=== PATIENT | male | born 1930 | race Caucasian/White ===

== ENCOUNTER 2017-11-30 11:06 | Inpatient (IN) ==
[2017-11-30 11:44] LABS: Basophils % 0.5 %; Eosinophils # 0.2 K/mcL (0.0-0.6); Eosinophils % 1.9 %; Hematocrit 46.6 % (37.5-50.1); Hemoglobin 16.1 g/dL (12.9-16.9); Immature Granulocytes % 0.5 % (0-4); Lymphocytes # 0.8 K/mcL (0.6-4.6); Lymphocytes % 9.7 %; Mean Corpuscular HGB Conc 34.5 g/dL (31.6-35.5); Mean Corpuscular Hemoglobin 31.4 pg (28.0-33.3); Mean Platelet Volume 9.3 fL (9.4-12.4); Monocytes % 11.3 %; Neutrophils # 6.5 K/mcL (1.6-8.9); Platelet Count 201 K/mcL (140-400); Red Blood Count 5.12 M/mcL (4.19-5.50); Red Cell Distribution Width 12.8 % (11.5-14.5); Segmented Neutrophils % 76.1 %
[2017-11-30 11:50] LABS: INR 3.2; Prothrombin Time 35.3 Seconds (9.4-12.1)
[2017-11-30 11:53] LABS: Activated Partial Thrombo Time 38.5 Seconds (26.0-36.0)
--- NOTE | 2017-11-30 12:01 | Emergency Department Note ---
Disposition Clinical Impression: Chest pain, rule out acute myocardial infarction Disposition: Admitted As Inpatient Condition: Fair Time of Disposition: 12:08 General Adult HPI - General Stated complaint: CP Time Seen by Provider: 11/30/17 11:10 Source: patient Mode of arrival: ambulatory Limitations: no limitations Nursing Notes Reviewed: Yes Vital Signs Reviewed: Yes - History of Present Illness HPI Narrative: 87-year-old male presents emergency Department with concerns of acute onset chest pain. Patient states symptoms started while he was dressing this morning. He states that this is occurred a couple times over the past week. He reports associated shortness of breath nausea and lightheadedness. Patient did not syncopized. Patient has a history of multiple cardiac stents which she obtained after similar symptoms in the past. Patient has not had a stress test and multiple years. He follows Dr. Hein for cardiology. Chest pain is described as a pressure in the center of his chest that did not radiate. It resolved with nitroglycerin. Not present in the emergency department. Pain Scale: 0 - Related Data Home Medications Medication Instructions Recorded Confirmed Aspirin 11/23/17 FluocinoNIDE 0.05% CRM 11/23/17 Furosemide 11/23/17 Isosorbide MONOnitrate 11/23/17 Levothyroxine Sodium 11/23/17 Metoprolol 11/23/17 Nitrostat 11/23/17 Omeprazole 11/23/17 Potassium Chlorate 11/23/17 Pravastatin Sodium 11/23/17 Previous Rx's Medication Instructions Recorded Acetaminophen with Codeine 1 each PO Q4-6H PRN 3 Days #10 11/23/17 [Acetaminophen-Cod #3 Tablet] tablet Methocarbamol [Robaxin] 250 - 500 mg PO Q8HR PRN #15 tablet 11/23/17 Allergies Allergy/AdvReac Type Severity Reaction Status Date / Time No Known Allergies Allergy Unverified 11/23/17 18:39 All systems ED: reviewed and negative except as stated. Review of Systems: As Per HPI Past Medical History - Past Medical History Attestation: Yes The following information was validated with the patient. Source: patient Medical history: Reports: atrial fibrillation, hypertension, thyroid disease, other Psychiatric history: Reports: no psych history - Social History Smoking Status: Never smoker Smokeless Tobacco Status: No Alcohol use: Reports: rarely Drug use: Reports: none Physical Exam General: Alert and in no acute distress Skin: Warm, dry, intact Head: Normocephalic and atraumatic Neck: Supple, trachea midline and no tenderness Cardiovascular: RRR, normal perfusion Respiratory: CTAB, no wheezing, cough, or respiratory distress Musculoskeletal: Normal strength, no tenderness or deformity GI: Soft, nontender, nondistended. Bowel sounds present Neuro: A&O to person, place, time and situation. No focal deficits noted on exam Psychiatric: cooperative and appropriate mood and affect. 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 Patient's BP was 90/60, his heart rate was in the 60s. She stated that he was very diaphoretic. Patient comfortable with the plan for admission to the hospital for further care and evaluation. Patient given aspirin in the emergency department. - Medical Records Medical records reviewed: Yes I reviewed the patient's medical records. - Lab Data Lab results reviewed: Yes I reviewed the patient's lab results. Result diagrams: 11/30/17 11:30 Lab Results 11/30/17 11/30/17 Range/Units 11:30 11:30 WBC 8.6 (4.3-11.1) K/mcL RBC 5.12 (4.19-5.50) M/mcL Hgb 16.1 (12.9-16.9) g/dL Hct 46.6 (37.5-50.1) % MCV 91.0 (83.0-100.0) fL MCH 31.4 (28.0-33.3) pg MCHC 34.5 (31.6-35.5) g/dL RDW 12.8 (11.5-14.5) % Plt Count 201 (140-400) K/mcL MPV 9.3 L (9.4-12.4) fL Immature Gran % 0.5 (0-4) % Seg Neutrophils % 76.1 % Lymphocytes % 9.7 % Monocytes % 11.3 % Eosinophils % 1.9 % Basophils % 0.5 % Neutrophils # 6.5 (1.6-8.9) K/mcL Lymphocytes # 0.8 (0.6-4.6) K/mcL Monocytes # 1.0 (0.0-1.3) K/mcL Eosinophils # 0.2 (0.0-0.6) K/mcL Basophils # 0.0 (0.0-0.2) K/mcL PT 35.3 H (9.4-12.1) Seconds INR 3.2 APTT 38.5 H (26.0-36.0) Seconds - Radiology Data Radiology results reviewed: Yes I reviewed the patient's radiology results. - EKG Data EKG #1 EKG attestation: Yes I reviewed and interpreted this EKG. EKG results narrative: V paced with multiple PVCs. Initial EKG had multiple PVCs in a row occluding the [place] beats seen on leads I, II, III.
[2017-11-30 12:06] LABS: Troponin I < 0.03 ng/mL (< 0.04)
[2017-11-30 12:08] LABS: BUN/Creatinine Ratio 16 (6-26); Blood Urea Nitrogen 14 mg/dL (8-23); Calcium 9.3 mg/dL (8.6-10.3); Carbon Dioxide 28 mEq/L (23-29); Chloride 106 mEq/L (98-107); Glucose 127 mg/dL (70-105); Osmolality,Calculated 292 (280-300); Potassium 4.2 mEq/L (3.5-5.1); Sodium 140 mEq/L (136-145); eGFR For African Americans > 60 (> 60); eGFR For Non-African Americans > 60 (> 60)
[2017-11-30] MEDS ORDERED: Aspirin 81 MG TAB.CHEW PO ONE (12:08)
--- NOTE | 2017-11-30 15:20 | Internal Med History&Physical ---
Date of Encounter: 12/01/17 Time of Encounter: 04:00 Internal Medicine - H&P: HPI Chief complaint: CP History of present illness: Mr. 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 and cardiac enzymes were was no significant abnormalities the patient was admitted for further evaluation and management Past Med Surg Social Fam HX - Past Medical History Medical history: atrial fibrillation, hypertension, thyroid disease, other Psychiatric history: no psych history - Social History Smoking Status: Never smoker Smokeless Tobacco Status: No Alcohol use: rarely Drug use: none - Family History Mother Living Status: Age at : 56 Cause of : liver cancer Father Living Status: Cause of : tb Hx Family Respiratory Disorders: Yes Internal Medicine - H&P: Meds Acetaminophen with Codeine [Acetaminophen-Cod #3 Tablet] 1 tab PO BID PRN [History] Aspirin Enteric Coated [Aspirin EC] 81 mg PO DAILY 11/30/17 [History] Furosemide [Lasix] 40 mg PO DAILY 11/30/17 [History] Levothyroxine Sodium 100 mcg PO DAILY 11/30/17 [History] Losartan Potassium [Cozaar] 50 mg PO DAILY 11/30/17 [History] Metoprolol Tartrate [Metoprolol Tartrate] 75 mg PO BID 11/30/17 [History] Omeprazole [PriLOSEC] 20 mg PO DAILY 11/30/17 [History] Potassium Chloride [K-Tab ER] 20 meq PO DAILY 11/30/17 [History] Pravastatin Sodium [Pravachol] 20 mg PO HS 11/30/17 [History] Warfarin Sodium [Warfarin Sodium] 4 mg PO DAILY 11/30/17 [History] 3 Allergy/AdvReac Type Severity Reaction Status Date / Time No Known Allergies Allergy Verified 11/30/17 15:38 All Systems PM: A 10-system review of systems was performed and is negative for pertinent findings except as documented above in the HPI. - Constitutional Constitutional: no chills, no fever(s), no night sweats - Cardiovascular Cardiovascular ROS IM: chest pain, dyspnea, no diaphoresis, no lightheadedness, no palpitations, no syncope - Respiratory Respiratory: dyspnea, no cough, no wheezing, no excessive phlegm production - Gastrointestinal Gastrointestinal: no abdominal pain, no diarrhea, no hematemesis, no hematochezia, no melena, no nausea, no vomiting - Neurological Neurological ROS: no confusion, no convulsions, no focal weakness, no numbness, no tingling, no tremor(s) - Constitutional Vitals: Temp Pulse Resp BP Pulse Ox 98.0 F 69 16 156/107 96 11/30/17 11:14 11/30/17 12:54 11/30/17 12:54 11/30/17 12:54 11/30/17 12:54 General appearance: Present: A&O X 3 - Head Head exam: Present: atraumatic, normocephalic - Respiratory Respiratory exam: Present: CTAB. Absent: accessory muscle use, rales, rhonchi, wheezes - Cardiovascular Cardiovascular exam: Present: RRR, +S1, +S2. Absent: diastolic murmur, gallop, rubs, systolic murmur - GI/Abdominal GI/Abdominal exam: Present: normal bowel sounds, soft, no peritoneal signs. Absent: distended, tenderness - Extremities Exam Extremities exam: Present: warm, radial pulses palpable and symmetrical. Absent : calf tenderness, cyanotic, pedal edema Internal Med - H&P Results - Labs CBC & Chem 7: 12/01/17 03:30 12/01/17 03:30 - Assessment and plan (1) Chest pain, rule out acute myocardial infarction Current Visit: Yes Status: Acute Assessment and plan: - Chest pain due to R/O ACS PLAN: - cardiac enzymes x 2 q 8 hr - EKG now and in AM - ASA - O2 by NC to keep SpO2 greater than 92% - UA - CBCD, BMP in AM - Fasting lipids - Home meds (check list) - Heparin 5000 U SQ BID - 2D Echo - Cardiology consult (2) Hypertension Current Visit: Yes Status: Acute Assessment and plan: the patient Pressure on the low side, will continue antihypertensive medication with holding parameters and continue to monitor. (3) Afib Current Visit: No Status: Acute Assessment and plan: The patient has a history of A. fib, EKG revealed V paced with multiple PVCs in a row occluding the [place] beats seen on leads I, II, III. cardiology was consulted for further evaluation and management (4) Hypothyroidism Current Visit: Yes Status: Acute Assessment and plan: we will continue home levothyroxine (5) DVT prophylaxis Current Visit: Yes Status: Acute Assessment and plan: we'll restart the patient on SCDs as well as subcutaneous heparin - Time Spent With Patient Total time spent is greater than 50% in coordination of care (as documented) at patient's floor/unit and/or counseling patient:
[2017-11-30] MEDS ORDERED: Naloxone 0.4 MG/ML INJ IVP PRN (21:51)
[2017-11-30] MEDS ORDERED: *HR* Acetaminophen w/Cod 300-30 mg 1 TAB TABLET PO PRN (22:49)
[2017-12-01 05:03] LABS: Basophils % 0.4 %; Eosinophils # 0.2 K/mcL (0.0-0.6); Eosinophils % 2.4 %; Hematocrit 43.8 % (37.5-50.1); Immature Granulocytes % 0.4 % (0-4); Lymphocytes # 1.5 K/mcL (0.6-4.6); Lymphocytes % 15.7 %; Mean Corpuscular HGB Conc 32.9 g/dL (31.6-35.5); Mean Corpuscular Hemoglobin 30.1 pg (28.0-33.3); Mean Corpuscular Volume 91.4 fL (83.0-100.0); Mean Platelet Volume 10.1 fL (9.4-12.4); Neutrophils # 6.5 K/mcL (1.6-8.9); Platelet Count 186 K/mcL (140-400); Red Blood Count 4.79 M/mcL (4.19-5.50); Red Cell Distribution Width 12.8 % (11.5-14.5); Segmented Neutrophils % 70.1 %
[2017-12-01 05:07] LABS: INR 3.3; Prothrombin Time 36.1 Seconds (9.4-12.1)
[2017-12-01 05:10] LABS: Activated Partial Thrombo Time 36.8 Seconds (26.0-36.0)
[2017-12-01 05:15] LABS: Hemoglobin 14.4 g/dL (12.9-16.9)
[2017-12-01 05:30] LABS: Troponin I < 0.03 ng/mL (< 0.04)
[2017-12-01 05:35] LABS: Alanine Aminotransferase 15 Units/L (7-52); Albumin 3.5 g/dL (3.5-5.7); Albumin/Globulin Ratio 1.6 (1.1-2.2); Alkaline Phosphatase 51 Units/L (34-104); Aspartate Amino Transferase 16 Units/L (13-39); BUN/Creatinine Ratio 29 (6-26); Bilirubin,Total 0.9 mg/dL (0.3-1.0); Blood Urea Nitrogen 21 mg/dL (8-23); Calcium 8.8 mg/dL (8.6-10.3); Carbon Dioxide 26 mEq/L (23-29); Chloride 106 mEq/L (98-107); Chol/HDL Ratio 2.4 (0-4.9); Cholesterol 93 mg/dL (< 200); Globulin 2.2 g/dL (2.4-3.5); Glucose 139 mg/dL (70-105); HDL Cholesterol 38 mg/dL (40-59); LDL Cholesterol,Calculated 39 mg/dL (0-99); Magnesium 2.1 mg/dL (1.6-2.6); Osmolality,Calculated 293 (280-300); Potassium 3.8 mEq/L (3.5-5.1); Sodium 139 mEq/L (136-145); Total Protein 5.7 g/dL (6.4-8.9); Triglycerides 79 mg/dL (< 150); eGFR For African Americans > 60 (> 60); eGFR For Non-African Americans > 60 (> 60)
[2017-12-01 06:06] LABS: Bilirubin,Urine Negative (Negative); Blood,Urine Negative (Negative); Clarity,Urine Clear (Clear); Color,Urine Yellow (Yellow); Glucose,Urine (UA) Normal (Normal); Ketones,Urine Negative (Negative); Leukocyte Esterase,Urine Negative (Negative); Nitrite,Urine Negative (Negative); PH,Urine 6.5 pH Units (5.0-8.0); Protein,Urine Negative (Neg-Trace); Specific Gravity,Urine 1.026 (1.010-1.025)
--- NOTE | 2017-12-01 07:17 | Electrocardiograph Report ---
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
--- NOTE | 2017-12-01 07:18 | Electrocardiograph Report ---
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
[2017-12-01] MEDS ORDERED: *HR* Acetaminophen w/Cod 300-30 mg 1 TAB TABLET PO SCH (09:00)
[2017-12-01] MEDS: Aspirin Enteric Coated 81 MG Tablet PO SCH (09:23)
[2017-12-01] MEDS: Furosemide 40 MG TABLET PO SCH (09:23)
--- NOTE | 2017-12-01 11:00 | Cardiology Consult Note ---
Addendum entered and electronically signed by Moise Schaffer CNP 12/01/17 14:32 : Device check completed- single chamber medtronic. Last device check was 01/2017. There was 2 runs NSVT only 1 second long. No concerning findings to account for dizziness. TTE pending. Keep NPO after midnight for possible cardiac testing. Original Note: Date of Encounter: 12/01/17 Time of Encounter: 10:58 Assessment and Plan (1) Chest pain, rule out acute myocardial infarction Current Visit: Yes Status: Chronic Intermittent chest pain relieved with NTG. H/o SD and PCI in 1999. Troponin negative x4. EKG with no acute changes, ventricular pacing and intermittent afib seen. Last TTE 08/2017 showed reduced EF at 35-40%. C Previously 40-45% in 2014, 50% in 2013, and 35% in 2008.) Stress test completed one year ago showed prior inferior/inferolateral infarct. Negative for ischemia. TTE pending. I will check his ICD. Last check was 01/2017. Currently pain free. Further recommendation to follow. (2) CAD (coronary artery disease) Current Visit: Yes Status: Acute H/o SD and PCI in 1999. Stress test 12/2016 was negative for ischemia. Continue asa, statin, and bb. \ Qualifiers: Coronary Disease-Associated Artery/Lesion type: [place] artery [place] vs. transplanted heart: [place] heart Associated angina: without angina Qualified Code(s): I25.10 - Atherosclerotic heart disease of [place] coronary artery without angina pectoris (3) Afib Current Visit: No Status: Chronic H/o chronic afib. Appears to be rate controlled. Will check ICD. Continue coumadin. Qualifiers: Atrial fibrillation type: chronic Qualified Code(s): I48.2 - Chronic atrial fibrillation (4) ICD (implantable cardioverter-defibrillator) in place Current Visit: No Status: Chronic H/o ICMP and ICD. (5) Cardiomyopathy Current Visit: Yes Status: Chronic H/o ischemic cardiomyopathy that resolved. Last TTE showed reduced EF at 35-40% with mild reduction in RV function, mild LVH. Currently euvolemic. Will change metoprolol tartrate to metoprolol succinate. Continue cozaar. Qualifiers: Cardiomyopathy type: ischemic Qualified Code(s): I25.5 - Ischemic cardiomyopathy Discussion w patient/family: The assessment and plan as outlined above was discussed with the patient and/or family members who expressed understanding and agreement. All questions were answered. Thank you for involving us in the care of your patient. Please call with any questions. History of Present Illness Consult date: 12/01/17 Requesting physician: Darya Jarrell Consult reason: chest pain Chief complaint: Chest discomfort and dizziness History of present illness: Mr. Schafer is a 87 year old male with past medical history significant for CAD s/p remote PCI, HTN, ICD, atrial fibrillation on coumadin, and hypothyroidism. He presents with the c/o intermittent left sided chest discomfort starting 2 days ago. The discomfort occurred while sitting. He associates his discomfort with dizziness and blurred vision. C/o dizziness while standing in his room today that quickly resolved. Previous cardiac testing: Stress test 12/2017- Large fixed defect seen in the inferior and inferiolateral byrd suggestive of prior infarct. Negative for ischemia. Gated EF 42%. TTE 09/06/17- EF 35-40%, mild LVH, normal RV structure with reduced function. TTE 02/21/15- EF 40-45%, RV hypokenesis. Last device check was 01/2017- no events, battery longevity 9.7 years. Past Med Surg Social Fam HX - Past Medical History Attestation: Yes The following information was validated with the patient. Medical history: atrial fibrillation, cardiomyopathy, coronary artery disease, hypertension, myocardial infarction, thyroid disease, other Psychiatric history: no psych history - Past Surgical History Surgical History: tonsilectomy - Social History Smoking Status: Never smoker Smokeless Tobacco Status: No Alcohol use: rarely Drug use: none - Family History Mother Living Status: Age at : 56 Cause of : liver cancer Father Living Status: Cause of : tb Hx Family Respiratory Disorders: Yes Medications and Allergies Acetaminophen with Codeine [Acetaminophen-Cod #3 Tablet] 1 tab PO BID PRN [History] Aspirin Enteric Coated [Aspirin EC] 81 mg PO DAILY 11/30/17 [History] Furosemide [Lasix] 40 mg PO DAILY 11/30/17 [History] Levothyroxine Sodium 100 mcg PO DAILY 11/30/17 [History] Losartan Potassium [Cozaar] 50 mg PO DAILY 11/30/17 [History] Metoprolol Tartrate [Metoprolol Tartrate] 75 mg PO BID 11/30/17 [History] Omeprazole [PriLOSEC] 20 mg PO DAILY 11/30/17 [History] Potassium Chloride [K-Tab ER] 20 meq PO DAILY 11/30/17 [History] Pravastatin Sodium [Pravachol] 20 mg PO HS 11/30/17 [History] Warfarin Sodium [Warfarin Sodium] 4 mg PO DAILY 11/30/17 [History] 3 Allergy/AdvReac Type Severity Reaction Status Date / Time No Known Allergies Allergy Verified 11/30/17 15:38 All Systems Review: The remainder of the systems were reviewed and are negative Physical Examination Vital Signs, Last 4 Hours Temp Pulse Resp BP BP BP BP 12/01/17 10:37 97.7 F 70 18 102/65 122/79 115/75 112/73 12/01/17 07:05 98.6 F 72 16 134/86 Pulse Ox 12/01/17 10:37 98 12/01/17 07:05 96 General: Conversant, No Apparent Distress HEENT: Atraumatic, Normocephaly, Mucus Membranes Moist Neck: No JVD, Normal carotid pulses Cardiac: Reg Rate and Rhythm, Normal S1 and S2, No Murmur Lungs: Normal Breath Sounds, No Wheeze, Rales, Rhonchi Neuro: Alert and responsive, No focal deficits noted Abdomen: Soft, Non-Tender Skin: No rashes noted on visualized skin Musculoskeletal: No Chest Wall Tenderness Extremities: No Clubbing, No Cyanosis, No Edema, Normal Pulses Results 12/01/17 03:30 12/01/17 03:30 Lab Results 11/30/17 12/01/17 12/01/17 22:09 03:30 03:30 WBC 9.3 Hgb 14.4 D Hct 43.8 Plt Count 186 INR 3.3 APTT 36.8 H Sodium Potassium Chloride Carbon Dioxide BUN Creatinine Glucose Calcium Magnesium Total Bilirubin AST ALT Alkaline Phosphatase Troponin I < 0.03 12/01/17 12/01/17 03:30 09:31 WBC Hgb Hct Plt Count INR APTT Sodium 139 Potassium 3.8 Chloride 106 Carbon Dioxide 26 BUN 21 Creatinine 0.72 Glucose 139 H Calcium 8.8 Magnesium 2.1 Total Bilirubin 0.9 AST 16 ALT 15 Alkaline Phosphatase 51 Troponin I < 0.03 < 0.03 - Imaging and Cardiology Echo: report reviewed - EKG Interpretation EKG results cardiology: personally reviewed Consult Discharge Plan - Plan Referrals: Mir Corona MD [Primary Care Provider] -
--- NOTE | 2017-12-01 13:18 | Internal Med Progress Note ---
Date of Encounter: 12/01/17 Time of Encounter: 13:18 - Assessment and plan (1) Chest pain, rule out acute myocardial infarction Current Visit: Yes Status: Chronic Assessment and plan: - Chest pain due to R/O ACS - HO AR PCI in 1999- Last TTE 08/2017 showed reduced EF at 35-40%. C Previously 40-45% in 2014, 50% in 2013, and 35% in 2008.) Stress test completed one year ago showed prior inferior/inferolateral infarct. Negative for ischemia cardiac enzymes negative cardiology consulted- nPO after midnight for further testing Echo pending ASA statin BB ARB Nitro as needed (2) Afib Current Visit: No Status: Chronic Assessment and plan: Hx of Afib EKG V paced with multiple PVC- cardilogy consulted- last device check was 01/2017 there wer 2 runs of NSVT 1 sec long at that time . NPO after midnight for further testing Rate controlled cont with coumadin Qualifiers: Atrial fibrillation type: chronic Qualified Code(s): I48.2 - Chronic atrial fibrillation (3) Hypertension Current Visit: Yes Status: Acute Assessment and plan: the patient Pressure on the low side, continue meds with parameters . Qualifiers: Hypertension type: essential hypertension Qualified Code(s): I10 - Essential (primary) hypertension (4) Hypothyroidism Current Visit: Yes Status: Chronic Assessment and plan: we will continue home levothyroxine Qualifiers: Hypothyroidism type: unspecified Qualified Code(s): E03.9 - Hypothyroidism , unspecified (5) DVT prophylaxis Current Visit: Yes Status: Acute Assessment and plan: we'll restart the patient on SCDs as well as subcutaneous heparin - Time Spent With Patient Total time spent is greater than 50% in coordination of care (as documented) at patient's floor/unit and/or counseling patient: - Subjective Interval history: This patient is new to me I did review medical records. I examined the patient at bedside. Presently denies any CP or SOB - Constitutional Vitals: Temp Pulse Resp BP Pulse Ox 97.7 F 70 18 122/79 98 12/01/17 10:37 12/01/17 10:37 12/01/17 10:37 12/01/17 10:37 12/01/17 10:37 General appearance: Present: A&O X 3 - Head Head exam: Present: atraumatic, normocephalic - Eye Eye exam: Present: PERRL, conjuntiva pink, sclera anicteric Pupils: Present: PERRL - Neck Neck exam general surgery: Present: supple, trachea midline. Absent: lymphadenopathy - Respiratory Respiratory exam: Present: CTAB. Absent: accessory muscle use, rales, rhonchi, wheezes - Cardiovascular Cardiovascular exam: Present: RRR, +S1, +S2. Absent: diastolic murmur, gallop, rubs, systolic murmur - GI/Abdominal GI/Abdominal exam: Present: normal bowel sounds, soft, no peritoneal signs. Absent: distended, tenderness - Extremities Exam Extremities exam: Present: warm, radial pulses palpable and symmetrical. Absent : calf tenderness, cyanotic, pedal edema - Neurological Exam Neurological exam: Present: CN II-XII intact, oriented X3, no focal deficits. Absent: pronater drift, facial droop, speech deficit - Skin Skin exam: Present: dry, intact Internal Medicine: Result - Labs CBC & Chem 7: 12/01/17 03:30 12/01/17 03:30 Labs: Short CBC 12/01/17 Range/Units 03:30 WBC 9.3 (4.3-11.1) K/mcL Hgb 14.4 D (12.9-16.9) g/dL Hct 43.8 (37.5-50.1) % Plt Count 186 (140-400) K/mcL Neutrophils # 6.5 (1.6-8.9) K/mcL BMP 12/01/17 03:30 Sodium 139 Potassium 3.8 Chloride 106 Carbon Dioxide 26 BUN 21 Creatinine 0.72 Glucose 139 H Calcium 8.8 Cardiac Enzymes 11/30/17 12/01/17 12/01/17 Range/Units 22:09 03:30 09:31 Troponin I < 0.03 < 0.03 < 0.03 (< 0.04) ng/mL Liver Function 12/01/17 Range/Units 03:30 Total Bilirubin 0.9 (0.3-1.0) mg/dL AST 16 (13-39) Units/L ALT 15 (7-52) Units/L Alkaline Phosphatase 51 (34-104) Units/L Albumin 3.5 (3.5-5.7) g/dL Urine 12/01/17 Range/Units 05:56 Urine Color Yellow (Yellow) Urine Clarity Clear (Clear) Urine pH 6.5 (5.0-8.0) pH Units Ur Specific [place] 1.026 H (1.010-1.025) Urine Protein Negative (Neg-Trace) mg/dL Urine Glucose (UA) Normal (Normal) mg/dL - ABG Interpretation ABG results: PT/INR, D-dimer PT 36.1 Seconds (9.4-12.1) H 12/01/17 03:30 Consult Discharge Plan - Plan Referrals: Mir Corona MD [Primary Care Provider] -
[2017-12-01] MEDS ORDERED: Warfarin perPT PO PRN (18:00)
--- NOTE | 2017-12-01 20:38 | Electrocardiograph Report ---
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
[2017-12-02 05:14] LABS: Basophils # 0.1 K/mcL (0.0-0.2); Basophils % 0.7 %; Eosinophils # 0.2 K/mcL (0.0-0.6); Eosinophils % 2.7 %; Hematocrit 42.3 % (37.5-50.1); Hemoglobin 14.6 g/dL (12.9-16.9); Immature Granulocytes % 0.2 % (0-4); Lymphocytes # 1.5 K/mcL (0.6-4.6); Lymphocytes % 18.2 %; Mean Corpuscular HGB Conc 34.5 g/dL (31.6-35.5); Mean Corpuscular Hemoglobin 31.3 pg (28.0-33.3); Mean Corpuscular Volume 90.6 fL (83.0-100.0); Mean Platelet Volume 9.8 fL (9.4-12.4); Monocytes % 12.7 %; Neutrophils # 5.4 K/mcL (1.6-8.9); Platelet Count 183 K/mcL (140-400); Red Blood Count 4.67 M/mcL (4.19-5.50); Red Cell Distribution Width 12.6 % (11.5-14.5); Segmented Neutrophils % 65.5 %
[2017-12-02 05:26] LABS: BUN/Creatinine Ratio 25 (6-26); Blood Urea Nitrogen 17 mg/dL (8-23); Calcium 8.7 mg/dL (8.6-10.3); Carbon Dioxide 26 mEq/L (23-29); Chloride 107 mEq/L (98-107); Glucose 111 mg/dL (70-105); INR 2.3; Osmolality,Calculated 288 (280-300); Potassium 3.8 mEq/L (3.5-5.1); Prothrombin Time 25.7 Seconds (9.4-12.1); Sodium 138 mEq/L (136-145); eGFR For African Americans > 60 (> 60); eGFR For Non-African Americans > 60 (> 60)
[2017-12-02] MEDS: Furosemide 40 MG TABLET PO SCH (08:20)
[2017-12-02] MEDS: Aspirin Enteric Coated 81 MG Tablet PO SCH (08:20)
[2017-12-02] MEDS ORDERED: Metoprolol XL (24 HR) Succ 50 MG TAB.ER.24H PO SCH (09:00)
[2017-12-02] MEDS ORDERED: Isosorbide MONOnitrate (24 HR) 60 MG TAB.ER.24H PO SCH (09:00)
[2017-12-02] MEDS ORDERED: amLODIPine 5 MG TABLET PO SCH (09:00)
--- NOTE | 2017-12-02 13:19 | Discharge Summary ---
- NOTES TO OUTPATIENT PROVIDER Notes to Outpatient Provider: Patient placed on Imdur per cardiology- follow up with cardiology. Decreased losartan to 25 mg dt Low BP will need to monitor Orders not resulted at time of discharge: Pending orders 12/03/17 04:00 INR/PT [Prothrombin Time INR] [COAG] AM 0400 Date of Encounter: 12/02/17 Time of Encounter: 13:14 - Discharge Diagnosis (1) Chest pain, rule out acute myocardial infarction Priority: Primary Status: Chronic (2) Afib Priority: Secondary Status: Chronic Qualifiers: Atrial fibrillation type: chronic Qualified Code(s): I48.2 - Chronic atrial fibrillation (3) Hypertension Priority: Secondary Status: Acute Qualifiers: Hypertension type: essential hypertension Qualified Code(s): I10 - Essential (primary) hypertension (4) Hypothyroidism Priority: Secondary Status: Chronic Qualifiers: Hypothyroidism type: unspecified Qualified Code(s): E03.9 - Hypothyroidism , unspecified Hospital course: Mr. Schafer is a 87 year old male PMH of prior OR and multiple cardiac stents, presented to the ED with intermitten episodes of CP with associated SOB nausea and lightheadedness alleviated with nitroglycerin. EKG revealed V paced multiple PVC cardiac enzymes were negative x3 He was admitted and seen by cardiology- who advised to add Imdur ambukate patient and if no CP have him follow up as outpatient. He did have a lower BP systolic in 100. I did decrease his losartan. Advised him to follow up PCP to monitor BP as well as to follow up with cardiology. He is presently CP free and hemodynamically stable. He verbalizes understanding of discharge instructions and is ready for discharge Discharge discussed with: patient - Time Spent with Patient Total time spent providing and/or coordinating discharge services: - Discharge Medications Prescriptions: Isosorbide MONOnitrate (24 HR) [Imdur] 60 mg PO DAILY #30 tab.er.24h Losartan Potassium [Cozaar] 25 mg PO DAILY #30 tablet Home Medications: Acetaminophen with Codeine [Acetaminophen-Cod #3 Tablet] 1 tab PO BID PRN [History] Aspirin Enteric Coated [Aspirin EC] 81 mg PO DAILY 11/30/17 [History] Furosemide [Lasix] 40 mg PO DAILY 11/30/17 [History] Levothyroxine Sodium 100 mcg PO DAILY 11/30/17 [History] Metoprolol Tartrate 75 mg PO BID 11/30/17 [History] Omeprazole [PriLOSEC] 20 mg PO DAILY 11/30/17 [History] Potassium Chloride [K-Tab ER] 20 meq PO DAILY 11/30/17 [History] Pravastatin Sodium [Pravachol] 20 mg PO HS 11/30/17 [History] Warfarin Sodium 4 mg PO DAILY 11/30/17 [History] Isosorbide MONOnitrate (24 HR) [Imdur] 60 mg PO DAILY #30 tab.er.24h 12/02/17 [ Rx] Losartan Potassium [Cozaar] 25 mg PO DAILY #30 tablet 12/02/17 [Rx] Allergies/Adverse Reactions: 3 Allergy/AdvReac Type Severity Reaction Status Date / Time No Known Allergies Allergy Verified 11/30/17 15:38 Date of admission: 11/30/17 21:51 Primary care physician: Mir Corona MD Discharging clinician: Pepper Paris Anticipated date of discharge: 12/02/17 - Constitutional Vitals: Temp Pulse Resp BP Pulse Ox 97.5 F L 76 16 95/61 97 12/02/17 11:23 12/02/17 11:23 12/02/17 11:23 12/02/17 11:23 12/02/17 11:23 General appearance: Present: A&O X 3 - Head Head exam: Present: atraumatic, normocephalic - Eye Eye exam: Present: PERRL, conjuntiva pink, sclera anicteric Pupils: Present: PERRL - Neck Neck exam general surgery: Present: supple, trachea midline. Absent: lymphadenopathy - Respiratory Respiratory exam: Present: CTAB. Absent: accessory muscle use, rales, rhonchi, wheezes - Cardiovascular Cardiovascular exam: Present: RRR, +S1, +S2. Absent: diastolic murmur, gallop, rubs, systolic murmur - GI/Abdominal GI/Abdominal exam: Present: normal bowel sounds, soft, no peritoneal signs. Absent: distended, tenderness - Extremities Exam Extremities exam: Present: warm, radial pulses palpable and symmetrical. Absent : calf tenderness, cyanotic, pedal edema - Neurological Exam Neurological exam: Present: CN II-XII intact, oriented X3, no focal deficits. Absent: pronater drift, facial droop, speech deficit - Skin Skin exam: Present: dry, intact - Patient Status Disposition: Home, Self-Care Condition: Fair Functional capacity at discharge: independent ambulation Overall status at discharge: patient is back to baseline - Discharge Instructions Instructions: Atrial Fibrillation (DC), Pacemaker (DC), Hypothyroidism (DC), Chronic Hypertension (DC) Follow Up With: Mir Corona MD [Primary Care Provider] - (Your appointment has been webrequested. our offices will calll you with an appointment time and date. If you do not hear from us please call [phone]) Benjy Card MD [Partnered Physician] - Forms: ED Satisfaction Letter - Diet and Activity Activity: increase activity as tolerated Diet: low fat, low cholesterol
[2017-12-02 13:32] VITALS: BP 105/62
--- NOTE | 2017-12-02 14:26 | Cardiology Progress Note ---
Date of Encounter: 12/02/17 Time of Encounter: 14:23 Assessment and Plan (1) Chest pain, rule out acute myocardial infarction Current Visit: Yes Status: Chronic Intermittent chest pain relieved with NTG on admit. H/o MA and PCI in 1999. Troponin negative x4. EKG with no acute changes, ventricular pacing and intermittent afib seen. Last TTE 08/2017 showed reduced EF at 35-40%. C Previously 40-45% in 2014, 50% in 2013, and 35% in 2008.) Stress test completed one year ago showed prior inferior/inferolateral infarct. Negative for ischemia. Re-peat TTE shows mildly to moderatley reduced EF. No significant change. Recommend next TTE with definity. Device check shows no concerning events to account for symptoms. Imdur added to medication and he is now pain free. Medical management recommended due to patient being on coumadin to avoid triple therapy and due to advanced age. Patient and agree. Cardiology will sign off. Out-pt f/u will be scheduled. (2) CAD (coronary artery disease) Current Visit: Yes Status: Acute H/o MA and PCI in 1999. Stress test 12/2016 was negative for ischemia. Continue asa, statin, and bb. \ Qualifiers: Coronary Disease-Associated Artery/Lesion type: [place] artery [place] vs. transplanted heart: [place] heart Associated angina: without angina Qualified Code(s): I25.10 - Atherosclerotic heart disease of [place] coronary artery without angina pectoris (3) Afib Current Visit: No Status: Chronic H/o chronic afib. Appears to be rate controlled. No events on ICD check. Continue coumadin. Qualifiers: Atrial fibrillation type: chronic Qualified Code(s): I48.2 - Chronic atrial fibrillation (4) ICD (implantable cardioverter-defibrillator) in place Current Visit: No Status: Chronic H/o ICMP and ICD. (5) Cardiomyopathy Current Visit: Yes Status: Chronic H/o ischemic cardiomyopathy that resolved. Last TTE showed reduced EF at 35-40% with mild reduction in RV function, mild LVH. Currently euvolemic. Will change metoprolol tartrate to metoprolol succinate. Continue cozaar. Qualifiers: Cardiomyopathy type: ischemic Qualified Code(s): I25.5 - Ischemic cardiomyopathy Discussion w patient/family: The assessment and plan as outlined above was discussed with the patient and/or family members who expressed understanding and agreement. All questions were answered. Thank you for involving us in the care of your patient. Please call with any questions. Subjective Principal diagnosis: 12/02/17 Interval history: Mr. Schafer denies recurrent chest pain. Ambulating in hallway without symptoms. Objective Vital Signs, Last 4 Hours Temp Pulse Resp BP Pulse Ox 12/02/17 13:32 105/62 12/02/17 11:23 97.5 F L 76 16 95/61 97 General: Conversant, No Apparent Distress HEENT: Atraumatic, Normocephaly, Mucus Membranes Moist Neck: No JVD, Normal carotid pulses Cardiac: Reg Rate and Rhythm, Normal S1 and S2, No Murmur Lungs: Normal Breath Sounds, No Wheeze, Rales, Rhonchi Neuro: Alert and responsive, No focal deficits noted Abdomen: Soft, Non-Tender Skin: No rashes noted on visualized skin Musculoskeletal: No Chest Wall Tenderness Extremities: No Clubbing, No Cyanosis, No Edema, Normal Pulses Results 12/02/17 04:24 12/02/17 04:24 Lab Results 12/02/17 12/02/17 12/02/17 04:24 04:24 04:24 WBC 8.2 Hgb 14.6 Hct 42.3 Plt Count 183 INR 2.3 Sodium 138 Potassium 3.8 Chloride 107 Carbon Dioxide 26 BUN 17 Creatinine 0.69 L Glucose 111 H Calcium 8.7 - Imaging and Cardiology Echo: report reviewed Consult Discharge Plan - Plan Instructions: Atrial Fibrillation (DC), Pacemaker (DC), Hypothyroidism (DC), Chronic Hypertension (DC) Referrals: Benjy Card MD [Partnered Physician] - Mir Corona MD [Primary Care Provider] - (Your appointment has been webrequested. our offices will calll you with an appointment time and date. If you do not hear from us please call [phone]) Prescriptions: Isosorbide MONOnitrate (24 HR) [Imdur] 60 mg PO DAILY #30 tab.er.24h Losartan Potassium [Cozaar] 25 mg PO DAILY #30 tablet
--- NOTE | 2017-12-02 16:06 | Electrocardiograph Report ---
[place] [id number] Test Date: 2017-12-01 Pat Name: Ravi Schafer Department: 113 Room: 3B23 Gender: M Emr Trainer: : [id number] Requested By: Yola Valentino Order Number: [id number] Reading MD: Akiko Shrestha Measurements Intervals [place] Rate: 74 P: [place]: 0 QRS: -36 QRSD: 123 T: -80 QT: 399 QTc: 427 Interpretive Statements ELECTRONIC VENTRICULAR PACEMAKER INTERMITTENT [place] CONDUCTION, POSSIBLY UNDERLYING ATRIAL FIBRILLATION NONSPECIFIC ST-T ABNORMALITIES Electronically Signed On 12-02-2017 16:05:21 EDT by Akiko Shrestha
[2017-12-02] MEDS ORDERED: *HR* Warfarin 4 MG TABLET PO ONE (18:00)
== END 2017-12-02 14:57 | disposition home or self-care (01) | DRG 313 ==
LOC: EMEROO 11:06 → 3BNU 11:06
PROVIDERS: ADMIT Internal Medicine Nephrology; ATTEND Internal Medicine Nephrology